=== PATIENT | male | born 1995 ===

== ENCOUNTER 2022-01-16 09:20 | Outpatient (CLI) | payer BC ==
[2022-01-16] MEDS ORDERED: Iopamidol 300 61% 100 ML VIAL FS ONE (13:03)
== END 2022-01-16 09:21 | disposition home or self-care (01) ==
LOC: CSHCT 09:20 → EDSEX 09:30
PROVIDERS: ATTEND Physician Assistant
DX: R59.1 Generalized enlarged lymph nodes (principal); R22.1 Localized swelling, mass and lump, neck
CPT/HCPCS: 70491; Q9967